=== PATIENT | female | born 2005 | race African-American/Black ===

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

== ENCOUNTER 2025-01-13 10:27 | Outpatient (CLI) | payer OTHER, SELFPAY ==
--- OUTSIDE RECORDS SUMMARY | 2025-01-14 20:11 | XMS_ITS | Clinical Summary ---
Author Organization Healthcare Address [address] [place] [id number] Care Team Providers Care Drywall Installer Name Role Phone Courtney Layne Primary Care Provider [phone] Allergies Active Allergy Reactions Criticality Noted Date Comments Latex Hives,Rash Medium 07/18/2023 Tape/Bandaid Adhesive Hives,Rash Medium 07/18/2023 Medications Vitamin D, Cholecalciferol, 25 MCG (1000 UT) tablet 3 Active ergocalciferol 1.25 MG (02856 UT) capsule 4 Active etonogestrel-eluti ng contraceptive [...] [facility]-HIV Screening 2005 [facility]-Hepatitis C Screening 2005 [facility]-/Child/Adol SDOH Screenings 2005 Fluoride Varnish 07/15/2006 [facility]- SDOH Screenings 11/16/2023 [facility]-Adult SDOH Screenings 11/16/2023 [facility]-Depression Screening 07/17/2024 07/18/2023, 0511/2023 [id number] Vaccine ( season) 2024 03/28/2022 [facility]-Influenza Vaccine (#1) 11/09/202405/12, 04/03/2010, 02/24/2010 [facility]-DTaP,Tdap,and Td Vaccines (7 - Td or Tdap) 09/18/2027 09/17/2017, 12/15/2009, 04/23/2007, Additional history exists [facility]-Zoster Vaccines (1 of 2) 11/16/2055 08/11/2010, 11/18/2006 [facility]-HIB Vaccines Completed 11/18/2006, 11/2006, 01/17/2006 [facility]-Hepatitis B Vaccines Completed 007, 01/17/2006, 2005 [facility]-IPV Vaccines Completed 12/15/2009, , 03/19/2006, Additional history exists [facility]-Varicella Vaccines Completed 08/11/2010, 2006 [facility]-Pneumococcal Vaccine: [...] age to complete this topic Insurance [facility]ETNA [facility] MEDICAID Advance Directives Documents on File Type Date Recorded Patient Organ Teacher Expl anation Power of Vest Baster 07/18/2023 standard p ower of state's attorney for medical/school decision making Care Teams Drywall Installer Relationship Specialty Start Date End Date Courtney Layne PA [address] [place] [address] PCP - General 05/28/23
== END 2025-01-13 23:59 | disposition home or self-care (01) ==
LOC: LAB.DROPOF 01-14 20:09
PROVIDERS: Visit Provider Student in an Organized Health Care Education/Training Program
DX: N89.8 Other specified noninflammatory disorders of vagina (principal)
CPT/HCPCS: 87086